=== PATIENT | female | born 1960 | race Caucasian/White ===

== ENCOUNTER 2018-04-18 18:29 | Observation (INO) | payer OTHER ==
[2018-04-18] MEDS ORDERED: HYDROmorphone 2 MG/ML SDV IVPUSH ONE (18:53)
[2018-04-18] MEDS ORDERED: Ondansetron 4 MG/2 ML SDV IVPUSH ONE (18:54)
--- NOTE | 2018-04-18 18:56 | EDM.PDOC ---
ED HPI GENERAL MEDICAL PROBLEM - General Stated Complaint: N/V Time Seen by Provider: 04/18/18 18:30 Source of Information: Reports: Patient History Limitations: Reports: No Limitations - History of Present Illness INITIAL COMMENTS - FREE TEXT/NARRATIVE: According to patient she claims that she has been having abdominal pain which started around 4 pm today. Pain in colicky in nature and waxing and waning type. Rates her pain at 10/10 . Also she has been feeling nausea and several episodes of vomiting. Vomitus was greenish clear. No abdominal distension. No fever or chills. Has not been able to pass any flatus since 4 PM. Her last bowel movement was 2 days ago. Pt claims she does use Metamucil daily to keep her daily bowel regime. Pt has had multiple abdominal surgeries and does get bowel obstruction. her last episode was 3 years ago. No other complaints. Onset: Today Onset Date: 04/18/18 Onset Time: 16:00 Duration: Getting Worse, Waxing/Waning Location: Reports: Abdomen Quality: Reports: Ache Severity: Severe Improves with: Reports: None Worsens with: Reports: None Associated Symptoms: Reports: Nausea/Vomiting. Denies: Confusion, Chest Pain, Cough, Diaphoresis, Fever/Chills, Headaches, Rash, Seizure, Shortness of Breath , Syncope, Weakness - Related Data Allergies Allergy/AdvReac Type Severity Reaction Status Date / Time codeine Allergy Vomiting Verified 04/18/18 18:33 meperidine [From Demerol] Allergy Vomiting Verified 04/18/18 18:33 Home Meds: Home Meds Biotin 1 tab PO DAILY 04/18/18 [History] Pramipexole Di-HCl [Mirapex] 1 tab PO DAILY 04/18/18 [History] Simvastatin [Zocor] 40 mg PO DAILY 04/18/18 [History] Venlafaxine [Effexor XR] 150 mg PO DAILY 04/18/18 [History] ED ROS GENERAL - Review of Systems Review Of Systems: See Below Constitutional: Denies: Fever, Chills, Malaise, Weakness HEENT: Denies: Ear Pain, Rhinitis, Throat Pain Respiratory: Denies: Shortness of Breath, Pleuritic Chest Pain, Cough, Sputum Cardiovascular: Denies: Chest Pain, Lightheadedness GI/Abdominal: Reports: Abdominal Pain, Constipation, Nausea, Vomiting. Denies: Diarrhea, Difficulty Swallowing, Distension, Flatus, Hematochezia, Melena : Denies: Dysuria, Flank Pain, Urgency Musculoskeletal: Denies: Joint Pain, Joint Swelling Skin: Denies: Bruising, Pruritis, Rash Neurological: Denies: Confusion, Dizziness, Headache ED EXAM, GENERAL - Physical Exam Exam: See Below Exam Limited By: No Limitations General Appearance: Alert, WD/WN, Mild Distress Eye Exam: Bilateral Eye: EOMI, PERRL Ears: Normal External Exam, Normal Canal, Hearing Grossly Normal, Normal TMs Ear Exam: Bilateral Ear: TM normal Nose: Normal Inspection, Normal Mucosa, No Blood Throat/Mouth: Normal Inspection, Normal Lips, Normal Teeth, Normal Gums, Normal Oropharynx, Normal Voice, No Airway Compromise Head: Atraumatic, Normocephalic Neck: Normal Inspection, Supple, Non-Tender, Full Range of Motion Respiratory/Chest: No Respiratory Distress, Lungs Clear, Normal Breath Sounds, No Accessory Muscle Use, Chest Non-Tender Cardiovascular: Normal Peripheral Pulses, Regular Rate, Rhythm, No Edema, No Gallop, No JVD, No Murmur, No Rub GI/Abdominal: Soft, No Distention, Pelvis Stable, Tender (All 4 quadrants), Abnormal Bowel Sounds (hypoactive bowel sounds). No: Guarding, Rigid, Rebound Extremities: Normal Inspection, Normal Range of Motion, Non-Tender, No Pedal Edema, Normal Capillary Refill Course - Vital Signs Text/Narrative:: Pt's CBC shows mild elevation WBC at 12.7. CMP is stable. Her Abdomen X-ray upright shows plenty of stools with absent air pattern. Pt did receive Dilaudid 1mg and Zofran 4mg IV in the emergency room which did help with her pain. Pt does have hypoactive bowel sounds. PAin is controlled She does have stool in the rectum an descending colon. Did give her fleet's enema time one to help empty the distal colon, to see if this is mechanical obstruction caused by constipation. I did ordered Ct abdomen and pelvis per radiologist recommendation. Ct abdomen does show small bowel obstruction with distension. Hence NG tube was placed. Will plan conservative management of small bowel obstruction. Keep Patient NPO and have maintenance IV normal saline. Reassess patient tomorrow with CBC and BMP in am Last Recorded V/S: Last Vital Signs Temp 96.7 F 04/18/18 18:37 Pulse 88 04/18/18 18:37 Resp 16 04/18/18 18:37 BP 160/108 H 04/18/18 18:37 Pulse Ox 100 04/18/18 18:37 - Orders/Labs/Meds Orders: Active Orders 24 hr Category Date Time Status Patient Status [ADT] Routine ADT 04/18/18 19:15 Ordered Bedrest Bathroom Privileges [RC] ASDIRECTED Care 04/18/18 19:51 Ordered Height and Weight [RC] UPON Care 04/18/18 19:51 Ordered Intake and Output [RC] QSHIFT Care 04/18/18 19:55 Ordered Oxygen Therapy [RC] PRN Care 04/18/18 19:51 Ordered VTE/DVT Education [RC] Per Unit Routine Care 04/18/18 19:51 Ordered Vital Signs [RC] Q4H Care 04/18/18 19:51 Ordered Nothing per Oral Now Diet [DIET] Diet 04/18/18 Breakfast Ordered Abdomen 1V Upright [CR] Stat Exams 04/18/18 18:51 Ordered Abdomen Pelvis wo Cont [CT] Stat Exams 04/18/18 19:16 Ordered BASIC METABOLIC PANEL,BMP [CHEM] Routine Lab 04/19/18 07:30 Ordered CBC WITH AUTO DIFF [HEME] Routine Lab 04/19/18 07:30 Ordered HYDROmorphone [Dilaudid] Med 04/18/18 19:58 Ordered 1 mg IVPUSH Q8H PRN Ketorolac [Toradol] Med 04/18/18 19:57 Ordered 30 mg IVPUSH Q8H PRN Ondansetron [Zofran] Med 04/18/18 19:59 Ordered 4 mg IVPUSH Q8H PRN Sodium Chloride 0.9% @ 125 MLS/HR (1000ml) Med 04/18/18 20:00 Ordered Sodium Chloride 0.9% [Normal Saline] 1,000 ml IV ASDIRECTED Sodium Chloride 0.9% [Normal Saline] 500 ml Med 04/18/18 19:14 Ordered IV .BOLUS Sodium Chloride 0.9% [Saline Flush] Med 04/18/18 19:51 Ordered 10 ml FLUSH ASDIRECTED PRN NG [Nasogastric Orogastric Tube Insertion] [OM.PC] Oth 04/18/18 20:10 Ordered Routine Peripheral IV Insertion Adult [OM.PC] Routine Oth 04/18/18 19:51 Ordered Resuscitation Status Routine Resus Stat 04/18/18 19:51 Ordered Medication Orders Hydromorphone HCl (Dilaudid) 1 mg IVPUSH Q8H PRN PRN Reason: Abdominal Pain Sodium Chloride (Normal Saline) 500 mls @ 500 mls/hr IV .BOLUS ONE Stop: 04/18/18 20:13 Sodium Chloride (Normal Saline) 1,000 mls @ 125 mls/hr IV ASDIRECTED DEJAN Ketorolac Tromethamine (Toradol) 30 mg IVPUSH Q8H PRN PRN Reason: Abdominal Pain Stop: 04/23/18 19:58 Ondansetron HCl (Zofran) 4 mg IVPUSH Q8H PRN PRN Reason: Nausea/Vomiting Sodium Chloride (Saline Flush) 10 ml FLUSH ASDIRECTED PRN PRN Reason: Keep Vein Open Labs: Laboratory Tests 04/18/18 04/18/18 Range/Units 08:40 08:40 WBC 12.7 H (4.0-11.0) K/uL RBC 5.39 (3.80-5.80) M/uL Hgb 16.3 (11.5-16.5) g/dL Hct 47.6 H (37.0-47.0) % MCV 88 (76-96) fL MCH 30.2 (27.0-32.0) pg MCHC 34.2 (31.0-35.0) g/dL RDW 12.3 (11.0-16.0) % Plt Count 288 (150-500) K/uL MPV 10.0 (6.0-10.0) fL Neut % (Auto) 87.0 H (45.0-70.0) % Lymph % (Auto) 8.2 L (20.0-40.0) % [place] % (Auto) 4.2 (3.0-10.0) % Eos % (Auto) 0.4 L (1.0-5.0) % Baso % (Auto) 0.2 (0.0-0.5) % Neut # (Auto) 11.09 H (2.00-7.50) K/uL Lymph # (Auto) 1.05 L (1.50-4.00) K/uL [place] # (Auto) 0.53 (0.20-0.80) K/uL Eos # (Auto) 0.05 (0.04-0.40) K/uL Baso # (Auto) 0.02 (0.02-0.10) K/uL Sodium 138 (136-145) mmol/L Potassium 4.3 (3.5-5.1) mmol/L Chloride 102 (98-107) mmol/L Carbon Dioxide 19.4 L (21.0-32.0) mmol/L Anion Gap 20.9 H (5.0-15.0) mmol/L BUN 19 (8-26) mg/dL Creatinine 0.90 (0.55-1.02) mg/dL Est Cr Clr Drug Dosing TNP Estimated GFR (MDRD) > 60 (>60) MLS/MIN BUN/Creatinine Ratio 21.1 (6-25) Glucose 138 H (74-100) mg/dL Calcium 10.2 H (8.5-10.1) mg/dL Total Bilirubin 0.7 (0.0-1.0) mg/dL AST 26 (15-37) U/L ALT 42 (12-78) U/L Alkaline Phosphatase 107 (46-116) U/L Total Protein 8.2 (6.4-8.2) g/dL Albumin 4.4 (3.4-5.0) g/dL Globulin 3.8 (2.2-4.2) g/dL Albumin/Globulin Ratio 1.2 (0.8-2.0) Meds: Medications Generic Name Dose Route Start Last Admin Trade Name Freq PRN Reason Stop Dose Admin Hydromorphone HCl 1 mg 04/18/18 19:58 Dilaudid IVPUSH Q8H PRN Abdominal Pain Sodium Chloride 500 mls @ 500 mls/hr 04/18/18 19:14 Normal Saline IV 04/18/18 20:13 .BOLUS ONE Sodium Chloride 1,000 mls @ 125 mls/hr 04/18/18 20:00 Normal Saline IV ASDIRECTED DEJAN Ketorolac Tromethamine 30 mg 04/18/18 19:57 Toradol IVPUSH 04/23/18 19:58 Q8H PRN Abdominal Pain Ondansetron HCl 4 mg 04/18/18 19:59 Zofran IVPUSH Q8H PRN Nausea/Vomiting Sodium Chloride 10 ml 04/18/18 19:51 Saline Flush FLUSH ASDIRECTED PRN Keep Vein Open Discontinued Medications Generic Name Dose Route Start Last Admin Trade Name Freq PRN Reason Stop Dose Admin Hydromorphone HCl 1 mg 04/18/18 18:53 04/18/18 18:46 Dilaudid IVPUSH 04/18/18 18:54 1 mg ONETIME ONE Administration Ondansetron HCl 4 mg 04/18/18 18:54 04/18/18 18:49 Zofran IVPUSH 04/18/18 18:55 4 mg ONETIME ONE Administration Sodium Biphosphate/Sodium Phosphate 133 ml 04/18/18 20:05 Fleet Enema RECTAL 04/18/18 20:06 ONETIME ONE Departure - Departure Time of Disposition: 19:15 Disposition: Refer to Observation Condition: Fair Clinical Impression: Small bowel obstruction due to adhesions - Discharge Information *PRESCRIPTION DRUG MONITORING PROGRAM REVIEWED*: Not Applicable *COPY OF PRESCRIPTION DRUG MONITORING REPORT IN PATIENT BRI: Not Applicable - Problem List & Annotations (1) Small bowel obstruction due to adhesions SNOMED Code(s): 953728968 Code(s): K56.50 - INTESTNL ADHESIONS, UNSP TO PARTIAL VERSUS COMPLETE OBST Status: Acute - Problem List Review Problem List Initiated/Reviewed/Updated: Yes - My Orders Last 24 Hours: My Active Orders 04/18/18 18:51 Abdomen 1V Upright [CR] Stat 04/18/18 19:14 Sodium Chloride 0.9% [Normal Saline] 500 ml IV .BOLUS 04/18/18 19:15 Patient Status [ADT] Routine 04/18/18 19:16 Abdomen Pelvis wo Cont [CT] Stat 04/18/18 19:51 Bedrest Bathroom Privileges [RC] ASDIRECTED Height and Weight [RC] UPON Oxygen Therapy [RC] PRN VTE/DVT Education [RC] Per Unit Routine Vital Signs [RC] Q4H Sodium Chloride 0.9% [Saline Flush] 10 ml FLUSH ASDIRECTED PRN Peripheral IV Insertion Adult [OM.PC] Routine Resuscitation Status Routine 04/18/18 19:55 Intake and Output [RC] QSHIFT 04/18/18 19:57 Ketorolac [Toradol] 30 mg IVPUSH Q8H PRN 04/18/18 19:58 HYDROmorphone [Dilaudid] 1 mg IVPUSH Q8H PRN 04/18/18 19:59 Ondansetron [Zofran] 4 mg IVPUSH Q8H PRN 04/18/18 20:00 Sodium Chloride 0.9% @ 125 MLS/HR (1000ml) Sodium Chloride 0.9% [Normal Saline] 1,000 ml IV ASDIRECTED 04/18/18 20:10 NG [Nasogastric Orogastric Tube Insertion] [OM.PC] Routine 04/18/18 Breakfast Nothing per Oral Now Diet [DIET] 04/19/18 07:30 BASIC METABOLIC PANEL,BMP [CHEM] Routine CBC WITH AUTO DIFF [HEME] Routine - Assessment/Plan Last 24 Hours: My Active Orders 04/18/18 18:51 Abdomen 1V Upright [CR] Stat 04/18/18 19:14 Sodium Chloride 0.9% [Normal Saline] 500 ml IV .BOLUS 04/18/18 19:15 Patient Status [ADT] Routine 04/18/18 19:16 Abdomen Pelvis wo Cont [CT] Stat 04/18/18 19:51 Bedrest Bathroom Privileges [RC] ASDIRECTED Height and Weight [RC] UPON Oxygen Therapy [RC] PRN VTE/DVT Education [RC] Per Unit Routine Vital Signs [RC] Q4H Sodium Chloride 0.9% [Saline Flush] 10 ml FLUSH ASDIRECTED PRN Peripheral IV Insertion Adult [OM.PC] Routine Resuscitation Status Routine 04/18/18 19:55 Intake and Output [RC] QSHIFT 04/18/18 19:57 Ketorolac [Toradol] 30 mg IVPUSH Q8H PRN 04/18/18 19:58 HYDROmorphone [Dilaudid] 1 mg IVPUSH Q8H PRN 04/18/18 19:59 Ondansetron [Zofran] 4 mg IVPUSH Q8H PRN 04/18/18 20:00 Sodium Chloride 0.9% @ 125 MLS/HR (1000ml) Sodium Chloride 0.9% [Normal Saline] 1,000 ml IV ASDIRECTED 04/18/18 20:10 NG [Nasogastric Orogastric Tube Insertion] [OM.PC] Routine 04/18/18 Breakfast Nothing per Oral Now Diet [DIET] 04/19/18 07:30 BASIC METABOLIC PANEL,BMP [CHEM] Routine CBC WITH AUTO DIFF [HEME] Routine Assessment:: Small bowel obstruction Plan: Pt's CBC shows mild elevation WBC at 12.7. CMP is stable. Her Abdomen X-ray upright shows plenty of stools with absent air pattern. Pt did receive Dilaudid 1mg and Zofran 4mg IV in the emergency room which did help with her pain. Pt does have hypoactive bowel sounds. PAin is controlled She does have stool in the rectum an descending colon. Did give her fleet's enema time one to help empty the distal colon, to see if this is mechanical obstruction caused by constipation. I did ordered Ct abdomen and pelvis per radiologist recommendation. Ct abdomen does show small bowel obstruction with distension. Hence NG tube was placed. Will plan conservative management of small bowel obstruction. Keep Patient NPO and have maintenance IV normal saline. Reassess patient tomorrow with CBC and BMP in am
[2018-04-18] MEDS ORDERED: Sodium Chloride 0.9% 500 ML IV ONE (19:14)
[2018-04-18] MEDS ORDERED: Sodium Chloride 0.9% 10 ML Syringe FLUSH PRN (19:51)
[2018-04-18] MEDS ORDERED: Sodium Phosphate,Monobasic/Sodium Phosphate,Dibasic Enema 133 ML Bottle RECTAL ONE (20:05)
[2018-04-18] MEDS: Sodium Chloride 0.9% 1,000 ML IV SCH (20:30)
[2018-04-18] MEDS: Ondansetron 4 MG/2 ML SDV IVPUSH PRN (22:54)
[2018-04-18] MEDS: HYDROmorphone 2 MG/ML Syringe IVPUSH PRN (22:55)
[2018-04-19] MEDS: Sodium Chloride 0.9% 1,000 ML IV SCH ×3 (04:13→19:16)
[2018-04-19] MEDS: Ketorolac 30 MG/ML SDV IVPUSH PRN ×3 (04:14→18:38)
[2018-04-19] MEDS ORDERED: HYDROmorphone 2 MG/ML SDV ONE ×2 (07:39→23:05)
[2018-04-19] MEDS: Pantoprazole 40 MG Vial IVPUSH SCH (07:50)
[2018-04-19] MEDS: Ondansetron 4 MG/2 ML SDV IVPUSH PRN ×2 (07:50→18:38)
[2018-04-19] MEDS: HYDROmorphone 2 MG/ML Syringe IVPUSH PRN ×3 (07:51→23:07)
--- NOTE | 2018-04-19 08:21 | CR ---
DATE OF SERVICE: 04/18/18 CLINICAL DATA: bowel chair UPRIGHT ABDOMEN: There are air fluid levels noted in the stomach and proximal small bowel. No free air. No other significant findings. [id number] [facility]
--- NOTE | 2018-04-19 08:28 | CRLCT ---
DATE OF SERVICE: 04/18/18 CLINICAL DATA: abdominal pain with diminished bowel sounds UNENHANCED ABDOMEN AND PELVIC CT: Multislice acquisition through the abdomen and pelvis without IV or oral contrast was performed. No priors. The lung bases are clear. The stomach is gas and fluid filled and mildly distended. There are multiple distended, fluid filled loops of small bowel within the mid and lower abdomen and pelvis. They do contain air fluid levels. There is a transition zone noted in the ileum. These findings are consistent with small bowel obstruction. The liver is normal size. There are multiple sharply transcribed fluid density lesions within the liver, consistent with small cysts. The gallbladder appears normal. No calcified gallstones. The spleen appears normal. The pancreas appears normal. The right and left adrenals appear normal. The right and left kidneys appear normal. No nephrocalcinosis or nephrolithiasis. No hydronephrosis or hydroureter. The bladder is partially fluid filled. It appears normal. There is a small amount of free fluid noted within the pelvis. The appendix is not identified. No evidence of appendicitis. No free air. No adenopathy. No aortic aneurysm. IMPRESSION: Findings consistent with small bowel obstruction. See above. Other findings as discussed above. [id number] [facility]
--- NOTE | 2018-04-19 11:52 | PCM.PN ---
- General Info Date of Service: 04/19/18 Subjective Update: Pt claims that he abdominal pain is better , but still present rates at 2-3/10. No acute colicky pain like yesterday.she does feel distended in the belly. Has not passed flatus. No fever or chills. NG has drained about 300cc of gastric secretion greenish and dark. No other complaints. Functional Status: Reports: Pain Controlled, Ambulating, Urinating. Denies: Tolerating Diet - Review of Systems General: Denies: Fever, Weakness, Fatigue HEENT: Denies: Sinus Congestion, Sore Throat, Rhinitis Pulmonary: Denies: Shortness of Breath, Cough, Sputum, Hemoptysis Cardiovascular: Denies: Chest Pain, Palpitations, Dyspnea on Exertion, Lightheadedness Gastrointestinal: Reports: Abdominal Pain. Denies: Constipation, Diarrhea, Flatus, Nausea, Vomiting Genitourinary: Denies: Dysuria, Frequency Musculoskeletal: Denies: Joint Pain, Joint Swelling Skin: Denies: Bruising, Pruritis, Rash Neurological: Denies: Confusion, Dizziness, Headache, Numbness, Tingling Psychiatric: Denies: Confusion, Depression - Patient Data Vitals - Most Recent: Last Vital Signs Temp 99.4 F 04/19/18 02:40 Pulse 87 04/19/18 02:40 Resp 18 04/19/18 02:40 BP 141/83 H 04/19/18 02:40 Pulse Ox 95 04/19/18 02:40 Weight - Most Recent: 73.21 kg I&O - Last 24 Hours: Intake & Output 04/18/18 04/19/18 04/19/18 22:59 06:59 14:59 Intake Total 1687 Output Total 780 Balance 907 Lab Results Last 24 Hours: Laboratory Results - last 24 hr 04/18/18 04/18/18 04/19/18 Range/Units 08:40 08:40 07:30 WBC 12.7 H 7.4 D (4.0-11.0) K/uL RBC 5.39 4.26 (3.80-5.80) M/uL Hgb 16.3 12.9 D (11.5-16.5) g/dL Hct 47.6 H 39.0 (37.0-47.0) % MCV 88 92 (76-96) fL MCH 30.2 30.3 (27.0-32.0) pg MCHC 34.2 33.1 (31.0-35.0) g/dL RDW 12.3 12.6 (11.0-16.0) % Plt Count 288 231 (150-500) K/uL MPV 10.0 9.8 (6.0-10.0) fL Neut % (Auto) 87.0 H 69.6 (45.0-70.0) % Lymph % (Auto) 8.2 L 20.0 (20.0-40.0) % [place] % (Auto) 4.2 9.5 (3.0-10.0) % Eos % (Auto) 0.4 L 0.8 L (1.0-5.0) % Baso % (Auto) 0.2 0.1 (0.0-0.5) % Neut # (Auto) 11.09 H 5.11 (2.00-7.50) K/uL Lymph # (Auto) 1.05 L 1.47 L (1.50-4.00) K/uL [place] # (Auto) 0.53 0.70 (0.20-0.80) K/uL Eos # (Auto) 0.05 0.06 (0.04-0.40) K/uL Baso # (Auto) 0.02 0.01 L (0.02-0.10) K/uL Sodium 138 (136-145) mmol/L Potassium 4.3 (3.5-5.1) mmol/L Chloride 102 (98-107) mmol/L Carbon Dioxide 19.4 L (21.0-32.0) mmol/L Anion Gap 20.9 H (5.0-15.0) mmol/L BUN 19 (8-26) mg/dL Creatinine 0.90 (0.55-1.02) mg/dL Est Cr Clr Drug Dosing TNP Estimated GFR (MDRD) > 60 (>60) MLS/MIN BUN/Creatinine Ratio 21.1 (6-25) Glucose 138 H (74-100) mg/dL Calcium 10.2 H (8.5-10.1) mg/dL Total Bilirubin 0.7 (0.0-1.0) mg/dL AST 26 (15-37) U/L ALT 42 (12-78) U/L Alkaline Phosphatase 107 (46-116) U/L Total Protein 8.2 (6.4-8.2) g/dL Albumin 4.4 (3.4-5.0) g/dL Globulin 3.8 (2.2-4.2) g/dL Albumin/Globulin Ratio 1.2 (0.8-2.0) 04/19/18 Range/Units 07:30 WBC (4.0-11.0) K/uL RBC (3.80-5.80) M/uL Hgb (11.5-16.5) g/dL Hct (37.0-47.0) % MCV (76-96) fL MCH (27.0-32.0) pg MCHC (31.0-35.0) g/dL RDW (11.0-16.0) % Plt Count (150-500) K/uL MPV (6.0-10.0) fL Neut % (Auto) (45.0-70.0) % Lymph % (Auto) (20.0-40.0) % [place] % (Auto) (3.0-10.0) % Eos % (Auto) (1.0-5.0) % Baso % (Auto) (0.0-0.5) % Neut # (Auto) (2.00-7.50) K/uL Lymph # (Auto) (1.50-4.00) K/uL [place] # (Auto) (0.20-0.80) K/uL Eos # (Auto) (0.04-0.40) K/uL Baso # (Auto) (0.02-0.10) K/uL Sodium 144 (136-145) mmol/L Potassium 4.1 (3.5-5.1) mmol/L Chloride 108 H (98-107) mmol/L Carbon Dioxide 26.8 D (21.0-32.0) mmol/L Anion Gap 13.3 (5.0-15.0) mmol/L BUN 18 (8-26) mg/dL Creatinine 0.88 (0.55-1.02) mg/dL Est Cr Clr Drug Dosing 64.44 Estimated GFR (MDRD) > 60 (>60) MLS/MIN BUN/Creatinine Ratio 20.5 (6-25) Glucose 93 D (74-100) mg/dL Calcium 8.2 L (8.5-10.1) mg/dL Total Bilirubin (0.0-1.0) mg/dL AST (15-37) U/L ALT (12-78) U/L Alkaline Phosphatase (46-116) U/L Total Protein (6.4-8.2) g/dL Albumin (3.4-5.0) g/dL Globulin (2.2-4.2) g/dL Albumin/Globulin Ratio (0.8-2.0) Med Orders - Current: Current Medications Hydromorphone HCl (Dilaudid) 1 mg IVPUSH Q8H PRN PRN Reason: Abdominal Pain Last Admin: 04/19/18 07:51 Dose: 1 mg Sodium Chloride (Normal Saline) 1,000 mls @ 125 mls/hr IV ASDIRECTED [facility] Last Admin: 04/19/18 04:13 Dose: 125 mls/hr Ketorolac Tromethamine (Toradol) 30 mg IVPUSH Q8H PRN PRN Reason: Abdominal Pain Stop: 04/23/18 19:58 Last Admin: 04/19/18 11:30 Dose: 30 mg Ondansetron HCl (Zofran) 4 mg IVPUSH Q8H PRN PRN Reason: Nausea/Vomiting Last Admin: 04/19/18 07:50 Dose: 4 mg Pantoprazole Sodium (Protonix Iv) 40 mg IVPUSH DAILY [facility] Last Admin: 04/19/18 07:50 Dose: 40 mg Sodium Chloride (Saline Flush) 10 ml FLUSH ASDIRECTED PRN PRN Reason: Keep Vein Open Last Admin: 04/18/18 21:14 Dose: 10 ml Discontinued Medications Hydromorphone HCl (Dilaudid) 1 mg IVPUSH ONETIME ONE Stop: 04/18/18 18:54 Last Admin: 04/18/18 18:46 Dose: 1 mg Hydromorphone HCl (Dilaudid) Confirm Administered Dose 2 mg .ROUTE .STK-MED ONE Stop: 04/19/18 07:40 Last Admin: 04/19/18 09:39 Dose: Not Given Sodium Chloride (Normal Saline) 500 mls @ 500 mls/hr IV .BOLUS ONE Stop: 04/18/18 20:13 Last Admin: 04/18/18 19:15 Dose: 500 mls/hr Ondansetron HCl (Zofran) 4 mg IVPUSH ONETIME ONE Stop: 04/18/18 18:55 Last Admin: 04/18/18 18:49 Dose: 4 mg Sodium Biphosphate/Sodium Phosphate (Fleet Enema) 133 ml RECTAL ONETIME ONE Stop: 04/18/18 20:06 Last Admin: 04/18/18 20:43 Dose: Not Given - Exam General: Alert, Oriented HEENT: Pupils Equal, Pupils Reactive, EOMI, Mucous Membr. Moist/[place] Neck: Supple Lungs: Clear to Auscultation, Normal Respiratory Effort Cardiovascular: Regular Rate, Regular Rhythm GI/Abdominal Exam: No Mass, Distended, Tender (midl superficial tenderness ), Abnormal Bowel Sounds (hypoactive tymphanitic notes heard). No: Guarding, Rigid , Rebound Extremities: Normal Inspection, Normal Range of Motion, Non-Tender, No Pedal Edema, Normal Capillary Refill Peripheral Pulses: 2+: Carotid (L), Carotid (R), Radial (L), Radial (R) Skin: Warm, Intact - Problem List & Annotations (1) Small bowel obstruction due to adhesions SNOMED Code(s): 069717150 Code(s): K56.50 - INTESTNL ADHESIONS, UNSP TO PARTIAL VERSUS COMPLETE OBST Status: Acute Current Visit: No - Problem List Review Problem List Initiated/Reviewed/Updated: Yes - My Orders Last 24 Hours: My Active Orders 04/18/18 19:15 Patient Status [ADT] Routine 04/18/18 19:51 Bedrest Bathroom Privileges [RC] ASDIRECTED Oxygen Therapy [RC] PRN VTE/DVT Education [RC] Per Unit Routine Vital Signs [RC] Q4H Sodium Chloride 0.9% [Saline Flush] 10 ml FLUSH ASDIRECTED PRN Peripheral IV Insertion Adult [OM.PC] Routine Resuscitation Status Routine 04/18/18 19:57 Ketorolac [Toradol] 30 mg IVPUSH Q8H PRN 04/18/18 19:58 HYDROmorphone [Dilaudid] 1 mg IVPUSH Q8H PRN 04/18/18 19:59 Ondansetron [Zofran] 4 mg IVPUSH Q8H PRN 04/18/18 20:00 CULTURE MRSA SURVEY [RM] Routine Sodium Chloride 0.9% [Normal Saline] 1,000 ml IV ASDIRECTED 04/18/18 20:10 NG [Nasogastric Orogastric Tube Insertion] [OM.PC] Routine 04/19/18 08:00 Pantoprazole [ProTONIX IV] 40 mg IVPUSH DAILY - Assessment Assessment:: Small bowel obstruction- mechanical - Plan Plan:: On clinical exam pt still continue to have hypoactive bowel sounds. CBC and CMP are stable. Mild superficial tenderness felt. Pt has been having NG output. I have not one X-ray as it does appear like she has continue obstruction. Will continue conservative management of bowel obstruction for 24hrs more. Should encourage ambulation or sitting on bedside to see if this will help with GI motility. If the obstruction does not resolve by tomorrow, will need surgical consultation.
[2018-04-20] MEDS: Sodium Chloride 0.9% 1,000 ML IV SCH (03:06)
[2018-04-20] MEDS: Ketorolac 30 MG/ML SDV IVPUSH PRN (03:28)
[2018-04-20] MEDS: Ondansetron 4 MG/2 ML SDV IVPUSH PRN ×2 (03:36→07:40)
[2018-04-20] MEDS ORDERED: HYDROmorphone 2 MG/ML Syringe IVPUSH ONE (04:43)
[2018-04-20] MEDS ORDERED: Acetaminophen 650 MG Supp RECTAL ONE (04:43)
[2018-04-20] MEDS: Pantoprazole 40 MG Vial IVPUSH SCH (07:34)
[2018-04-20] MEDS: HYDROmorphone 2 MG/ML Syringe IVPUSH PRN (07:34)
[2018-04-20] MEDS ORDERED: HYDROmorphone 2 MG/ML Syringe ONE ×2 (07:35→10:32)
--- NOTE | 2018-04-20 10:06 | PCM.DCSUM1 ---
Discharge Summary - Hospital Course Free Text/Narrative:: Pt was admitted on 04/18/18 with acute small bowel obstruction.Pt had absent bowel sounds, with abdominal distension. Her vitals were stable. CBC and CMP were normal. Her Ct abdomen did show hig small bowel obstruction with distal decompression of the bowels. Pt was placed on conservative management of small bowel obstrcution with IV fluids. NPO, and NG depression. Also was placed on Toradol 30mg IV Q8hrs and dilaudid 1m IV 8hrs PRm for pain. Also On Iv protonix 40mg daily. On day1, patient's abdominal pain was down, but still distended, with absent bowel sounds. Her NG had drained about 300cc of greenish bilious drainage. Her Vitals were stable. CBC showed withe count of 7K Normal BMP . Pt was continue on conservative management, hoping the obstruction would resolve. On day#2, patient still is distended. Has had dull abdominal pain. Vitals are stable. CBC( White count is 5.1) and BMP appears normal. Abdomen upright done today does show multiple air fluid levels compared to the initial X-ray. She has had about 550cc of bilious NG drainage. As she has had small bowel obstruction for close to 48 hrs now and has not resolved with conservative management. I did contact [facility] and discuss patient with Dr. Joe, General surgeon director international. Who does recommend transfer for surgical consultation. I have discussed patient with Dr. Alfaro, hospitalist director international. He has agreed to accept patient. I have had detailed discussion with patient and her spouse. They do agree with transfer.Pt is hemodynamically stable at the time of transfer. Further care per Dr. Joe and Dr. Alfaro. Brief History: Presented to emergency room on 04/18/18 with sudden onset of severe abdominal pain. Pt has acute SBO. Kindly see H&P for details. Diagnosis: Stroke: No - Discharge Data Discharge Date: 04/20/18 Discharge Disposition: DC/Tfer to Acute Hospital 02 Condition: Good - Discharge Diagnosis/Problem(s) (1) Small bowel obstruction due to adhesions SNOMED Code(s): 959728456 ICD Code: K56.50 - INTESTNL ADHESIONS, UNSP TO PARTIAL VERSUS COMPLETE OBST Status: Acute Current Visit: No - Patient Instructions Diet: NPO Activity: As Tolerated - Discharge Plan *PRESCRIPTION DRUG MONITORING PROGRAM REVIEWED*: Not Applicable *COPY OF PRESCRIPTION DRUG MONITORING REPORT IN PATIENT BRI: Not Applicable Forms: ED Department Discharge, ED Return to Work/School Form Referrals: PCP,None [Primary Care Provider] - - Discharge Summary/Plan Comment DC Time >30 min.: Yes Discharge Summary/Plan Comment: Pt transferred to [facility] for surgical consultation. - General Info Date of Service: 04/20/18 Subjective Update: Pt feels still bloated. Has been afebrile. No nausea. NG tube draining greenish bilious drainage, about 550 cc in past 24 hrs. Mild abdominal discomfort. In IV NS at 125cc/hr. Has not passed flatus. Functional Status: Reports: Pain Controlled, Urinating, Other (NG tube in place) . Denies: Tolerating Diet, Ambulating - Review of Systems General: Denies: Fever, Weakness, Fatigue HEENT: Denies: Headaches, Sore Throat, Rhinitis Pulmonary: Denies: Shortness of Breath, Cough, Sputum, Hemoptysis Cardiovascular: Denies: Chest Pain, Lightheadedness Gastrointestinal: Reports: Abdominal Pain. Denies: Flatus, Nausea, Vomiting Genitourinary: Denies: Dysuria, Frequency Skin: Denies: Bruising, Pruritis, Rash Neurological: Denies: Confusion, Dizziness, Headache, Numbness, Tingling - Patient Data Vitals - Most Recent: Last Vital Signs Temp 99.3 F 04/20/18 07:15 Pulse 83 04/20/18 07:15 Resp 18 04/20/18 07:15 BP 157/97 H 04/20/18 07:15 Pulse Ox 99 04/20/18 07:15 Weight - Most Recent: 74.661 kg I&O - Last 24 hours: Intake & Output 04/19/18 04/20/18 04/20/18 22:59 06:59 14:59 Intake Total 1488 1333 Output Total 400 1200 Balance 1088 133 Lab Results - Last 24 hrs: Laboratory Results - last 24 hr 04/20/18 04/20/18 Range/Units 07:30 07:30 WBC 5.1 D (4.0-11.0) K/uL RBC 4.49 (3.80-5.80) M/uL Hgb 13.6 (11.5-16.5) g/dL Hct 42.0 (37.0-47.0) % MCV 94 (76-96) fL MCH 30.3 (27.0-32.0) pg MCHC 32.4 (31.0-35.0) g/dL RDW 12.8 (11.0-16.0) % Plt Count 185 (150-500) K/uL MPV 9.8 (6.0-10.0) fL Neut % (Auto) 80.3 H (45.0-70.0) % Lymph % (Auto) 8.2 L (20.0-40.0) % [place] % (Auto) 10.7 H (3.0-10.0) % Eos % (Auto) 0.6 L (1.0-5.0) % Baso % (Auto) 0.2 (0.0-0.5) % Neut # (Auto) 4.12 (2.00-7.50) K/uL Lymph # (Auto) 0.42 L (1.50-4.00) K/uL [place] # (Auto) 0.55 (0.20-0.80) K/uL Eos # (Auto) 0.03 L (0.04-0.40) K/uL Baso # (Auto) 0.01 L (0.02-0.10) K/uL Sodium 145 (136-145) mmol/L Potassium 3.8 (3.5-5.1) mmol/L Chloride 107 (98-107) mmol/L Carbon Dioxide 24.7 (21.0-32.0) mmol/L Anion Gap 17.1 H (5.0-15.0) mmol/L BUN 12 D (8-26) mg/dL Creatinine 0.95 (0.55-1.02) mg/dL Est Cr Clr Drug Dosing 59.69 mL/min Estimated GFR (MDRD) > 60 (>60) MLS/MIN BUN/Creatinine Ratio 12.6 (6-25) Glucose 82 (74-100) mg/dL Calcium 8.3 L (8.5-10.1) mg/dL Med Orders - Current: Current Medications Hydromorphone HCl (Dilaudid) 1 mg IVPUSH Q8H PRN PRN Reason: Abdominal Pain Last Admin: 04/20/18 07:34 Dose: 1 mg Sodium Chloride (Normal Saline) 1,000 mls @ 125 mls/hr IV ASDIRECTED [facility] Last Admin: 04/20/18 03:06 Dose: 125 mls/hr Ketorolac Tromethamine (Toradol) 30 mg IVPUSH Q8H PRN PRN Reason: Abdominal Pain Stop: 04/23/18 19:58 Last Admin: 04/20/18 03:28 Dose: 30 mg Ondansetron HCl (Zofran) 4 mg IVPUSH Q8H PRN PRN Reason: Nausea/Vomiting Last Admin: 04/20/18 07:40 Dose: 4 mg Pantoprazole Sodium (Protonix Iv) 40 mg IVPUSH DAILY [facility] Last Admin: 04/20/18 07:34 Dose: 40 mg Sodium Chloride (Saline Flush) 10 ml FLUSH ASDIRECTED PRN PRN Reason: Keep Vein Open Last Admin: 04/18/18 21:14 Dose: 10 ml Discontinued Medications Acetaminophen (Tylenol) 650 mg RECTAL NOW ONE Stop: 04/20/18 04:44 Last Admin: 04/20/18 04:50 Dose: 650 mg Hydromorphone HCl (Dilaudid) 1 mg IVPUSH ONETIME ONE Stop: 04/18/18 18:54 Last Admin: 04/18/18 18:46 Dose: 1 mg Hydromorphone HCl (Dilaudid) Confirm Administered Dose 2 mg .ROUTE .STK-MED ONE Stop: 04/19/18 07:40 Last Admin: 04/19/18 09:39 Dose: Not Given Hydromorphone HCl (Dilaudid) Confirm Administered Dose 2 mg .ROUTE .STK-MED ONE Stop: 04/19/18 23:06 Last Admin: 04/19/18 23:16 Dose: Not Given Hydromorphone HCl (Dilaudid) 2 mg IVPUSH ONETIME ONE Stop: 04/20/18 04:44 Hydromorphone HCl (Dilaudid) Confirm Administered Dose 2 mg .ROUTE .STK-MED ONE Stop: 04/20/18 07:36 Sodium Chloride (Normal Saline) 500 mls @ 500 mls/hr IV .BOLUS ONE Stop: 04/18/18 20:13 Last Admin: 02/13/19 19:15 Dose: 500 mls/hr Ondansetron HCl (Zofran) 4 mg IVPUSH ONETIME ONE Stop: 04/18/18 18:55 Last Admin: 04/18/18 18:49 Dose: 4 mg Sodium Biphosphate/Sodium Phosphate (Fleet Enema) 133 ml RECTAL ONETIME ONE Stop: 04/18/18 20:06 Last Admin: 04/18/18 20:43 Dose: Not Given - Exam General: Reports: Alert, Oriented HEENT: Reports: Pupils Equal, Pupils Reactive, EOMI, Mucous Membr. Moist/[place] Neck: Reports: Supple Lungs: Reports: Clear to Auscultation, Normal Respiratory Effort Cardiovascular: Reports: Regular Rate, Regular Rhythm GI/Abdominal Exam: Distended, Tender (mild superficial tenderness. no rebound), Abnormal Bowel Sounds (Silent abdomen, I do not hear any bowel sounds on ausculatation). No: Guarding, Rigid, Rebound Extremities: Normal Inspection, Normal Range of Motion, Non-Tender, No Pedal Edema, Normal Capillary Refill Skin: Reports: Warm, Intact
[2018-04-20] MEDS ORDERED: Ondansetron 4 MG/2 ML SDV ONE (10:32)
--- NOTE | 2018-04-22 12:24 | CR ---
UPRIGHT ABDOMEN, 04/20/18 Comparison is made to a prior exam dated 04/18/18. There is an NG tube in place. It forms a small loop at approximately the GE junction. I cannot say that it is within the stomach. There are multiple gas-filled distended loops of small bowel in the middle on the upper abdomen with air-fluid levels consistent with small bowel obstruction. There has been progression from the prior exam. No free air. The exam is otherwise unchanged from the prior. [id number] [facility]
== END 2018-04-20 10:19 ==
LOC: LB.ED 18:29 → UNDOADMOB 19:15 → LB.MS 19:15
PROVIDERS: ADMIT Family Medicine; ATTEND Family Medicine
DX: K56.50 Intestinal adhesions [bands], unspecified as to partial versus complete obstruction (principal)
CPT/HCPCS: 36415; 74018; 74176; 80048; 80053; 85025; 96361; 96374; 96375; 96376; 99285-25; A0425; A0429; A9270-GY; C9113; G0378; J1170; J1885; J2405; J7030; J7040